=== PATIENT | female | born 1980 | race Hispanic/Latino ===

== ENCOUNTER 2017-04-01 06:21 | Day surgery (SDC) | payer BC, OTHER ==
[2017-03-29 10:32] VITALS: BMI 30.7
[2017-04-01 07:27] LABS: HEMOGLOBIN 14.4 g/dL (12.0-16.0); MEAN CELL VOLUME 87.4 fl (81.0-99.0); MEAN CORPUSCULAR HEMOGLOBIN 29.7 pg (27.0-31.0); RBC 4.85 Mil/uL (3.80-5.20); RED CELL DISTRIBUTION WIDTH 13.7 % (11.5-14.5); WHITE BLOOD COUNT 10.6 K/uL (4.8-10.8)
[2017-04-01] MEDS ORDERED: Rocuronium 10 mg/ml (5 ml) ONE (07:30)
[2017-04-01] MEDS ORDERED: Succinylcholine 200 mg/10 ml Inj IV ONE (07:30)
[2017-04-01] MEDS ORDERED: Lidocaine 4% (Laryng-O-Jet) Kit MM ONE (07:30)
[2017-04-01] MEDS ORDERED: Propofol 10 mg/ml Inj (20 ML) ONE (07:30)
[2017-04-01] MEDS ORDERED: Neostigmine Methylsulfate 3mg/3ml Syringe IV ONE (07:35)
[2017-04-01] MEDS ORDERED: Phenylephrine 10 mg/ml Inj ONE (07:36)
[2017-04-01] MEDS ORDERED: Bupivacaine 0.5% Inj(30mL) ONE (07:51)
[2017-04-01] MEDS ORDERED: ePHEDrine 50 mg/ml Inj ONE (08:48)
[2017-04-01] MEDS ORDERED: Midazolam 2 MG/2 ML VIAL ONE (08:48)
[2017-04-01] MEDS ORDERED: Lactated Ringer's 1,000 ML IV ONE ×2 (09:00→09:10)
[2017-04-01] MEDS ORDERED: Dexamethasone 4 mg/1 ml ONE (09:19)
[2017-04-01] MEDS ORDERED: Sevoflurane - Inhalation Anesthetic Liq (250 ml) ONE (09:41)
[2017-04-01] MEDS ORDERED: DiphenhydrAMINE 50 mg/ml Inj IVP PRN (11:30)
[2017-04-01] MEDS: HYDROmorphone 0.5 mg/0.5 ml ISec IVP PRN ×4 (11:30→12:45)
[2017-04-01] MEDS ORDERED: Lactated Ringer's 1,000 ML IV SCH (11:30)
[2017-04-01] MEDS ORDERED: Oxycodone/Acetaminophen 5/325 mg Tab PO PRN (11:34)
[2017-04-01 14:44] VITALS: PULSE 102
[2017-04-01 16:36] VITALS: BP 110/70; RESP 18; TEMP 98.3; O2SAT 96
--- NOTE | 2017-04-04 09:09 | PCM.OP ---
Operative Report - Operative Report Date of Surgery/Procedure: 04/01/17 Time of Surgery/Procedure: 10:00 Surgeon: Dr. Thiago Mackay Operations Logistics Analyst: Dr. Star Wei Anesthesia/Sedation: general/Dr. Bowman Pre-Operative Diagnosis: abdominal pain and endometriosis Post-Operative Diagnosis: Significant and extensive adhesion from previous surgery with an incarcerated ventral hernia Indication for Surgery: as above with incarcerated ventral hernia Operative Findings: incarcerated ventral hernia and extensive adhesions Procedure/Operation Description: 1-Repair incarcerated ventral hernia. 2-lysis of extensive adhesions. Brief History: Johny is a 36 year [address] woman [address] Dr[address] Wei had already initiated a robotic surgery when he noted extensive adhesions in the right abdomial wall just above the inguinal area. He requested intraoperative general surgery consultation. Description of the Procedure: Dr. Wei had already initated the robotic procedure (separate dictation Dr. Wei ). After taking control of the robotic console the adhesions whihc were predominantly in the right lowere abdominal wall were lysed using blint and sharp dissection with the aid of electrocautery. An area representing an incarcerated hernia defect was encountered and the omentum was dissected free uncovering an abdominal wall hernia defect. The defect was repaired using 2-0 V- lock suture in a continuos fashion to close the fascial defect. Once completed the area was examined and hemostasis was deemed adequate. The operation was then turned over to Dr. Wei (separate dictation Dr. Wei). Estimated Blood Loss: 5 cc Complications: none Discharge & Condition: stable
--- NOTE | 2017-04-13 12:53 | OP ---
PROCEDURE DATE: 04/01/2017 PREOPERATIVE DIAGNOSES: Pelvic pain, abdominal pain, and rule out endometriosis. POSTOPERATIVE DIAGNOSES: Pelvic pain, abdominal pain, and rule out endometriosis. Pelvic adhesions, pelvic endometriosis and abdominal wall hernia. Squamous cystitis cystica. PROCEDURE PERFORMED: Cystoscopy with bilateral ureteral catheterization and injection of dye, diagnostic hysteroscopy, robotic da Antonieta, lysis of adhesion, and excision of endometriosis and peritoneal ablation. SURGEON: Star Wei MD ATG JAVA DEVELOPER: Thiago Mackay MD ESTIMATED BLOOD LOSS: Minimal. COMPLICATIONS: None. INDICATION OF THE PROCEDURE: The patient is a 36-year-old female with a history of prior year surgical . She presented with dysmenorrhea, dyspareunia, pelvic and abdominal pain mostly on the right hand side. Upon examination, she had acute tenderness suggesting possibility of pelvic endometriosis versus abdominal pelvic adhesions. She was consented for the procedure and prior to the surgery she was reaffirmed the consent and then she was taken to the OR. DESCRIPTION OF THE PROCEDURE: After adequate anesthesia was obtained, the patient was placed in dorsal lithotomy position. She was prepped and draped. The surgeon was gowned and gloved. A great attention was placed in positioning the patient in the appropriate position especially where her hips not being overextended or over flexed and keeping the stable position throughout the procedure. Also extensive padding was used. At this point, the procedure was started first with the cystoscopy where a cystoscope was inserted under direct visualization into the urethra. The bladder was visualized revealing evidence of significant squamous metaplastic changes on the trigone area. Otherwise, there was no other evidence of tumors, lesions, or any other bleeding. Both ureters were in the normal anatomical position. At this point, the left ureter was catheterized using an open-ended catheter all the way to the distal ureter and 5 mL of IC-Green were injected. On the contralateral side, similarly 5 mL of IC-Green were injected in the distal ureter after catheterizing with open-ended catheter. At this point, attention was in the vaginal area where a speculum was placed in the vagina, the anterior lip of the cervix was grasped, the cervix was dilated and a hysteroscope was inserted into the uterus. At this point, the urine cavity was examined and appeared to be normal with no evidence of polyps, fibroids, or any other lesions. Attention was then on the abdomen where an open laparoscopy was performed with a standard technique. The skin and fascia were incised and the peritoneal was entered bluntly. A cannula was inserted and the abdomen was insufflated. Under direct visualization, three additional ports were inserted, right upper quadrant, left upper quadrant, and left mid quadrant. The da antonieta robot was docked . Findings were as follows: There was evidence of abdominal dysesthesias with thick adhesions entering the abdominal defect. Also there was evidence of adhesion on the left hand side and also an incisional defect on the left hand side and a small hernia on the right hand side. At this point, attention was firs on dissecting the adhesions. General surgery. Dr. Mackay was called into help with this part and he will dictate that separately as well as the repair of the hernia. Once this was done attention was in the pelvis. There was evidence of inflammatory changes throughout the pelvis and an area was also suspicious of endometriosis. On the left hand side, the peritoneum was entered laterally and the ureter was identified and progressively dissected off laterally. A full dissection was performed and a larger peritoneum containing inflammatory peritoneal was sent to pathology. Again, an additional area in the left ovarian fossa was also excised with writhing flame tissue. Similarly another area in the posterior cervical area was also dissected with great care to avoid the underlying bowel. At this point, after this was done additional areas with inflammatory changes were in the cul-de-sac and the peritoneal sidewall in the pelvic sidewalls were ablated utilizing plasma energy. At this point, we will check for hemostasis and appeared to be excellent. The ureter had been visualized to other procedure utilizing fluorescent technology. We checked for hemostasis and appeared to be excellent. The da Antonieta robot was undocked. The instruments were removed and the abdomen was desufflated and the incision closed in layers with 0 PDS for the fascia and 4-0 Monocryl for the skin. Star Wei MD KILLIAN
== END 2017-04-01 16:45 | disposition home or self-care (01) ==
LOC: H.OPSURG 06:21
PROVIDERS: ATTEND Obstetrics & Gynecology Reproductive Endocrinology
DX: R10.2 Pelvic and perineal pain (principal); N73.6 Female pelvic peritoneal adhesions (postinfective); N80.0 Endometriosis of uterus; N30.80 Other cystitis without hematuria; K43.6 Other and unspecified ventral hernia with obstruction, without gangrene; N94.6 Dysmenorrhea, unspecified
CPT/HCPCS: 36415; 49329; 49653; 58563; 85027; 86850; 86900; 88305; C1729; J0330; J0690; J1100; J1170; J2001; J2250; J2370; J2405; J2704; J2710; J2765; J3010; J7030; J7040; J7120